=== PATIENT | male | born 1960 | race Caucasian/White ===

== ENCOUNTER 2019-12-21 22:42 | Emergency (ER) | payer BC ==
[~2019-12-21] VITALS: Ht 188 cm; Wt 102.1 kg
[~2019-12-21 22:42] MED LIST: MELOXICAM15 MG PO
[2019-12-22] MEDS ORDERED: NP THYROID60 MG PO
== END 2019-12-22 00:12 | disposition home or self-care (01) ==
LOC: ED 22:42
DX: S00.33XA Contusion of nose, initial encounter (principal); W50.0XXA Accidental hit or strike by another person, initial encounter; Z79.899 Other long term (current) drug therapy
CPT/HCPCS: 70160; 99283

== ENCOUNTER 2021-04-24 16:10 | Emergency (ER) | payer SELFPAY ==
[~2021-04-24] VITALS: Ht 188 cm; Wt 102.1 kg
[~2021-04-24 16:10] MED LIST changes: +NP THYROID60 MG PO
[2021-04-24] MEDS ORDERED: OMEPRAZOLE20 M1 PO (16:27)
[2021-04-24] MEDS ORDERED: GLUCOSAMINE &1 EACH PO (16:27)
[2021-04-24] MEDS ORDERED: LUTEIN20 MG PO (16:28)
[2021-04-24] MEDS ORDERED: REGLAN10 MG PO (18:46)
--- NOTE | 2021-04-25 20:12 | EKG ---
[facility] [address] [facility] [place], [place] [address] Signed Normal sinus rhythm Possible Left atrial enlargement Left axis deviation Abnormal ECG No previous ECGs available Confirmed by THERESA REDDY MD ([id number] on 04/25/2021 8:12:01 PM Electronically Signed By: THERESA REDDY MD 04/25/212011 PATIENT NAME: MARYURI SOSA JUAN M Electrocardiogram DATE OF : 56 PHYSICIAN: THERESA REDDY MD REPORT #: [id number] REPORT IS CONFIDENTIAL AND NOT TO BE RELEASED WITHOUT AUTHORIZATION
== END 2021-04-24 19:09 | disposition home or self-care (01) ==
LOC: ED 16:10
DX: R11.2 Nausea with vomiting, unspecified (principal)
CPT/HCPCS: 80053; 81001; 83690; 83735; 84484; 85025; 93005; 93010; 96374; 96375; 99284-25; J1200; J2405; J2765; J7030